=== PATIENT | male | born 1950 | race Caucasian/White ===

== ENCOUNTER → 2023-12-09 14:11 | Outpatient (REF) | payer MEDICARE, OTHER, SELFPAY | LOC: MRI 3T 14:11 | PROVIDERS: ATTENDING PHYSICIAN Specialist; FAMILY PHYSICIAN Family Medicine | DX: M48.062 Spinal stenosis, lumbar region with neurogenic claudication (principal) | CPT/HCPCS: 72148 ==

== ENCOUNTER 2023-12-12 06:10 | Day surgery (SDC) | payer MEDICARE, OTHER, SELFPAY ==
[2023-11-04 12:58] VITALS: BMI 32.2
[2023-11-04 13:53] LABS: Hematocrit 40.8 % (39.0-52.0); Hemoglobin 13.8 g/dL (13.0-18.0); Mean Corp Hgb Conc. 33.8 g/dL (33.0-37.0); Mean Corpuscular Hgb 31.4 pg (27.0-31.0); Mean Corpuscular Volume 92.9 fL (80.0-94.0); Mean Platelet Volume 9.7 fL (7.4-10.4); Platelet Count 291 10^3/uL (130-400); Red Blood Cell Count 4.39 10^6/uL (4.70-6.10); Red Cell Dist. Width 13.2 % (11.5-14.5); White Blood Cell Count 8.9 10^3/uL (4.8-10.8)
[2023-11-04 14:10] LABS: Glycohemoglobin (HgbA1c) 5.7 % (4.0-5.6)
[2023-11-04 14:20] LABS: ALT (SGPT) 21 U/L (0-50); AST (SGOT) 29 U/L (17-59); Albumin 4.3 g/dl (3.5-5.0); Alkaline Phosphatase 67 U/L (38-126); Blood Urea Nitrogen 20 mg/dl (9-20); Calcium 9.7 mg/dl (8.4-10.2); Carbon Dioxide 26 mmol/L (22-30); Chloride 104 mmol/L (98-107); Estimated Creatinine Clearance 90 ml/min; Glucose 89 mg/dl (70-99); Potassium 4.7 mmol/L (3.5-5.1); Sodium 138 mmol/L (135-145); Total Bilirubin 1.2 mg/dl (0.2-1.3); Total Protein 6.9 g/dl (6.3-8.2); eGFR > 60.00
--- NOTE | 2023-11-07 14:18 | VNURNOTE ---
Called patient to explain [facility] services. Left message requesting call back on home and cell numbers.
--- NOTE | 2023-11-08 08:35 | VNURNOTE ---
Spoke with patient over the phone. He is scheduled for an elective R TKA on Dec 11- he is a same day patient. Patient has not had VN services before. Explained the role of [facility] RN and PT and reviewed that he will have VN services initially for
his home care needs and will then start outpatient PT. He is interested in going to [facility] outpatient PT after home services conclude. [facility]. Referrral placed in [facility], [facility] Intake notified.
Patient reports that he lives in a MULTI story home with a first floor set up. He has two steps to enter to the main level. If he goes upstairs, it is 9 steps. He has a bathroom on the first floor and is having it renovated to a shower set up (tub
being removed).
He functions independently and has a rolling walker and single point cane. He can use a commode from his friend Geovanna.
Friend Geovanna will be available post-op but 'I don't know how much help she can be.' Patient states friend has back problems.
PCP is Dr Nicholas Smith.
Pharmacy is [facility]
Patient has 1 dog at home.
[2023-12-02 08:57] VITALS: BMI 32.2
[2023-12-12] VITALS (12 sets, daily range): BP systolic 105–139; BP diastolic 63–95; BMI 32.2
[2023-12-12] MEDS: CELEBREX 200 MG PO (06:38)
[2023-12-12] MEDS: NORMOSOL-R/PLASMALYTE-A 1000 IV (06:39)
[2023-12-12] MEDS: TYLENOL 650 MG PO (06:39)
[2023-12-12] MEDS: ANCEF 5 IV (11:15)
[2023-12-12] MEDS: ROXICODONE 5 MG PO ×2 (11:30→11:58)
== END 2023-12-12 13:22 | disposition home or self-care (01) ==
LOC: SDS 06:10
PROVIDERS: ATTENDING PHYSICIAN Specialist; FAMILY PHYSICIAN Family Medicine
DX: M17.11 Unilateral primary osteoarthritis, right knee (principal); K22.11 Ulcer of esophagus with bleeding; I49.3 Ventricular premature depolarization; E66.9 Obesity, unspecified; Z68.30 Body mass index [BMI] 30.0-30.9, adult
CPT/HCPCS: 27447; 36415; 73560; 80053; 83036; 85027; 87070; 93005; 97162; C1713; C1776

== ENCOUNTER → 2024-01-23 14:31 | Outpatient (REF) | payer MEDICARE, OTHER, SELFPAY | LOC: RCS 14:31 | PROVIDERS: ATTENDING PHYSICIAN Internal Medicine Cardiovascular Disease; FAMILY PHYSICIAN Family Medicine | DX: R94.31 Abnormal electrocardiogram [ECG] [EKG] (principal) | CPT/HCPCS: 93306 ==

== ENCOUNTER → 2024-02-27 06:29 | Day surgery (SDC) | payer MEDICARE, OTHER, SELFPAY | LOC: GI 06:29 | PROVIDERS: ATTENDING PHYSICIAN Internal Medicine | DX: Z12.11 Encounter for screening for malignant neoplasm of colon (principal); K63.5 Polyp of colon; K57.30 Diverticulosis of large intestine without perforation or abscess without bleeding; K64.9 Unspecified hemorrhoids; Z86.0101 Personal history of adenomatous and serrated colon polyps | CPT/HCPCS: 45380; 88305 ==